=== PATIENT | female | born 1995 | race American Indian/Alaskan Native ===

== ENCOUNTER 2021-01-28 09:47 | Outpatient (CLI) | payer OTHER ==
--- NOTE | 2021-01-28 11:15 | Mammography Report ---
LEFT DIGITAL DIAGNOSTIC MAMMOGRAM WITH CAD CONVENTIONAL, 01/28/2021 LEFT LIMITED BREAST ULTRASOUND CLINICAL INFORMATION / INDICATION: LT BREAST LUMP TECHNIQUE: Digital left mammographic imaging was performed. Spot compression views were obtained. Rangel ited ultrasound was performed. This examination was interpreted with the benefit of Computer-Aided De tection (CAD) analysis. COMPARISON: None available FINDINGS: Breast Density: The breasts are heterogeneously dense, which may obscure small masses. MAMMOGRAPHIC FINDINGS: No dominant mass, suspicious calcifications, or architectural distortion in ei ther breast. There is no focal mammographic abnormality to correspond to the area of palpable concern . ULTRASOUND FINDINGS: Targeted ultrasound evaluation was performed of the area of interest. There is no focal sonographic abnormality to correspond to the area of palpable concern. No solid or cystic l esions are seen. IMPRESSION: No mammographic or sonographic evidence of malignancy. Follow up recommendation: Clinical exam BI-RADS Category 2: Benign. A "NORMAL" OR NEGATIVE REPORT SHOULD NOT DISCOURAGE FOLLOW UP OR BIOPSY OF A CLINICALLY SIGNIFICANT F INDING. A written summary of these findings will be mailed to the patient. The patient will be entered into a mammography reporting system which will generate a reminder letter for the patient's next appointmen t at the appropriate interval. According to the [employer], yearly mammograms are recommended starting at age 40 and continuing as long as a woman is in good health. Breast MRI is recommended for women with an vance roximately 20-25% or greater lifetime risk of breast cancer, including women with a strong family his tory of breast or ovarian cancer and women who have been treated for Hodgkin's disease. Signer Name: Juan Sharpe MD Signed: 01/28/2021 11:10 AM Workstation Name: [email or web address]
== END 2021-01-28 09:48 | disposition home or self-care (01) ==
LOC: MAMMO 09:47
PROVIDERS: ATTEND Family Medicine
DX: N63.20 Unspecified lump in the left breast, unspecified quadrant (principal); R92.8 Other abnormal and inconclusive findings on diagnostic imaging of breast